=== PATIENT | female | born 1970 ===

== ENCOUNTER 2025-04-29 17:58 | Emergency (ER) | payer OTHER, SELFPAY ==
--- NOTE | 2025-04-29 18:25 | PC.NURSE ---
called patient name in waiting room with no answer
[2025-04-29 18:40] VITALS: BMI 44.9
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
--- NOTE | 2025-04-29 19:13 | MHC.EDTECH ---
t/w attempted lab draw 2x. rn aware of difficult stick.
[2025-04-29 19:43] LABS: MANUAL DIFF FLAG NO
[2025-04-29 19:44] LABS: Basophils Percent Auto 0.2 % (0-2); Eosinophils Absolute Auto 0.1 X10*3/uL (0.0-0.4); Eosinophils Percent Auto 0.8 % (0-4); Hematocrit 41.1 % (37.0-47.0); Imm Gran Abs Auto 0.07 X10*3/uL (0.00-0.03); Imm Gran Pct Auto 0.6 % (0.0-0.4); Lymphocytes Absolute Auto 2.8 X10*3/uL (1.2-4.9); Lymphocytes Percent Auto 22.8 % (20-40); Mean Corpuscular HGB Conc 31.6 g/dl (31.0-35.0); Mean Corpuscular Hemoglobin 24.3 pg (27.0-33.0); Mean Platelet Volume 10.3 fL (9.4-12.3); Monocytes Absolute Auto 0.5 X10*3/uL (0.1-1.2); Monocytes Percent Auto 4.2 % (2-11); Neutrophils Absolute Auto 8.7 x10*3/uL (2.0-8.3); Neutrophils Percent Auto 71.4 % (45-73); Platelet Count 180 X10*3/uL (160-400); Red Blood Count 5.34 X10*6/uL (4.20-5.50); Red Cell Distribution Width 15.8 % (11.0-16.0); White Blood Count 12.2 X10*3/uL (4.8-10.8)
[2025-04-29 20:01] LABS: Alanine Aminotransferase 14 U/L (0-31); Albumin Level 4.1 g/dL (3.5-5.0); Alkaline Phosphatase 120 U/L (39-117); Anion Gap 12 (12-20); Aspartate Amino Transferase 23 U/L (5-31); Bilirubin Total 0.2 mg/dL (0.0-1.0); Blood Urea Nitrogen 9 mg/dL (9-16); Calcium 9.5 mg/dL (8.4-10.2); Carbon Dioxide 29 mmol/L (22-29); Chloride 105 mmol/L (96-108); Creatinine Clr Calc Pharmacy 109.9; Estimated Glomerular Filt Rate > 60; Ethanol < 10 mg/dL; Glucose Random 113 mg/dL (60-115); Potassium 3.9 mmol/L (3.3-5.1); Sodium 142 mmol/L (135-145); Total Protein 7.9 g/dL (6.5-8.0)
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
[2025-04-29 22:46] VITALS: BP 155/93
[2025-04-29] MEDS: cloNIDine HCL 0.1 MG TABLET 0.2 MG PO (22:46)
[2025-04-29] MEDS: busPIRone HCl 10 MG TABLET PO (22:49)
[2025-04-29] MEDS: Gabapentin 400 MG CAPSULE PO (22:49)
[2025-04-29] MEDS: QUEtiapine Fumarate 50 MG TABLET PO (22:49)
[2025-04-29 23:39] VITALS: BP 155/93; PULSE 80; RESP 20; TEMP 36.9; O2SAT 98
[2025-04-30] VITALS (7 sets, daily range): BP systolic 119–166; BP diastolic 71–84; PULSE 63–72; RESP 14–16; TEMP 36.1–36.8; O2SAT 97–100
--- NOTE | 2025-04-30 | ECG_ITS ---
Test Reason : R/O PROLONGED QT Blood Pressure : */* mmHG Vent. Rate : 73 BPM Atrial Rate : 73 BPM P-R Int : 144 ms QRS Dur : 82 ms QT Int : 416 ms P-R-T Axes : 39 17 27 degrees QTcB Int : 458 ms Normal sinus rhythm Normal ECG No previous ECGs available Referred By: Marc Stevenson Electronically Signed By: RIAN BONILLA
--- NOTE | 2025-04-30 06:26 | HE.PHANOTE ---
METHADONE Dose: 72mg, last dosed 04/22/25 @0800, 12 take home bottles per Maria Eugenia at [facility] . (Take homes bottle to last through 05/04/2025).
--- NOTE | 2025-04-30 08:20 | MHC.EDTECH ---
Urine cup provided to patient. Patient aware that a urine sample is needed. Patient unable to void at this time.
[2025-04-30] MEDS: methADONE HCl 20 MG/2 ML ORAL.CONC 72 MG PO (08:29)
[2025-04-30] MEDS: Gabapentin 400 MG CAPSULE PO ×3 (08:29→21:53)
[2025-04-30] MEDS: busPIRone HCl 10 MG TABLET PO ×2 (08:30→21:54)
[2025-04-30] MEDS: amLODIPine Besylate 5 MG TABLET PO (08:30)
[2025-04-30] MEDS: cloNIDine HCL 0.1 MG TABLET PO ×2 (08:30→19:07)
[2025-04-30] MEDS: Nicotine 21 MG PATCH.TD24 TRANSDERMA (08:45)
--- NOTE | 2025-04-30 08:46 | PC.NURSE ---
Pt calm/cooperative at this time; ambulatory with steady, independent gait; pt gv Nicotine patch 21mg per request to LUE; awaiting bed for admission
[2025-04-30 09:37] LABS: Appearance Urine Cloudy; Color Urine Yellow; Glucose Urine UA Negative (Negative); Leukocyte Esterase Urine Trace (Negative); Nitrite Urine Negative (Negative); PH 7.5 (5.0-9.0); Specific Gravity - Urine 1.015 (1.005-1.025); UMIC TRIGGER UACC YES; Urine Blood Negative (Negative); Urine Ketones Negative (Negative); Urine Protein Negative (Neg-Trace)
[2025-04-30 09:46] LABS: Amphetamine Screen Urine Not Detected (Not Detect); Bacteria Urine 2+ (None Seen); Barbiturates, Urine Not Detected (Not Detect); Benzodiazepines Screen Urine Not Detected (Not Detect); Buprenorphine Scr Not Detected (Not Detect); Cannabinoid Screen Urine Not Detected (Not Detect); Cocaine Screen Urine Not Detected (Not Detect); Fentanyl, urine Not Detected (Not Detect); Hyaline Casts Urine 0-2 /LPF (0-2); Methadone Screen, Urine Positive (Not Detect); Opiate Screen Urine Not Detected (Not Detect); Other Crystals Urine Present; Oxycodone Screen Urine Not Detected (Not Detect); Phencyclidine Screen Urine Not Detected (Not Detect); RBC Urine 0-2 /HPF (0-2); Squamous Epithelial Cell Urine >20 /HPF (0-2); WBC Urine 0-5 /HPF (0-5)
--- NOTE | 2025-04-30 10:00 | PHA.MEDREC ---
Pharmacy Consult ? Medication Reconciliation Pharmacy has completed the medication reconciliation. Reviewed med rec done by nursing.
[2025-04-30] MEDS: Acetaminophen 325 MG TABLET 650 MG PO (11:46)
--- NOTE | 2025-04-30 11:57 | MHC.CARE ---
Referred to [facility]- activated referral @[id number], spoke with José Manuel
--- NOTE | 2025-04-30 12:02 | MHC.EDTECH ---
This tech provided patient with required items for shower. Patient ambulated with steady gait to the bathroom. All current needs met.
--- NOTE | 2025-04-30 15:03 | MHC.CARE ---
Per Fly with [facility], patient is under review for [facility]/ [facility]
--- NOTE | 2025-04-30 18:36 | MHC.CARE ---
Pt accepted to [facility] for Friday (05/01/25) at 9:45am, CARE team will Lyft Pt to [facility]. Pt reported her family will meet her there with her medications and clothes.
--- NOTE | 2025-04-30 19:35 | PC.NURSE ---
patient recently transitioned back into pod, friendly receptive mood, goal oriented, blunted affect but able to let her needs and wants be known. appears in no distress.
[2025-04-30] MEDS: cloNIDine HCL 0.1 MG TABLET 0.2 MG PO (21:53)
[2025-04-30] MEDS: QUEtiapine Fumarate 50 MG TABLET PO (21:53)
[2025-05-01 06:05] VITALS: BP 135/74; PULSE 65; RESP 16; TEMP 36.8; O2SAT 97
--- NOTE | 2025-05-01 06:58 | PC.NURSE ---
ASSUMED CARE FOR THIS PT AT APPROXIMATELY [id number]. NO APPARENT DISTRESS. LAYING IN BED QUIETLY. AWAITING ACCS RESPITE BED TODAY.
[2025-05-01] MEDS: cloNIDine HCL 0.1 MG TABLET PO (08:01)
[2025-05-01] MEDS: Gabapentin 400 MG CAPSULE PO (08:01)
[2025-05-01] MEDS: amLODIPine Besylate 5 MG TABLET PO (08:01)
[2025-05-01] MEDS: busPIRone HCl 10 MG TABLET PO (08:01)
[2025-05-01] MEDS: methADONE HCl 20 MG/2 ML ORAL.CONC 72 MG PO (08:05)
[2025-05-01 08:52] VITALS: BP 132/70; PULSE 79; RESP 14; TEMP 36.2; O2SAT 96
[2025-05-01 08:57] VITALS: BP 132/70; PULSE 79; RESP 14; TEMP 36.2; O2SAT 96
== END 2025-05-01 09:13 | disposition home or self-care (01) ==
PROVIDERS: Emergency Provider Emergency Medicine
DX: F43.0 Acute stress reaction (principal); R94.31 Abnormal electrocardiogram [ECG] [EKG]; R45.851 Suicidal ideations; Z79.899 Other long term (current) drug therapy; Z51.81 Encounter for therapeutic drug level monitoring
CPT/HCPCS: 36415; 80053; 80307; 81001; 85025; 93005; 99285; S9485

== ENCOUNTER → 2025-04-30 10:13 | Outpatient (BNV) | payer OTHER, SELFPAY | PROVIDERS: Emergency Provider Emergency Medicine; Visit Provider Internal Medicine | DX: Z13.6 Encounter for screening for cardiovascular disorders (principal) | CPT/HCPCS: 93010 ==

== ENCOUNTER 2025-06-13 17:12 | Emergency (ER) | payer OTHER, SELFPAY ==
[2025-06-13 17:18] VITALS: BP 104/61; PULSE 84; RESP 19; TEMP 36.4; O2SAT 98; BMI 35.2
--- NOTE | 2025-06-13 17:18 | ED.DIZZY ---
HPI - Dizziness General Chief Complaint: General Medical Stated Complaint: dizziness headache N/V for 4 days now Time Seen by Provider: 06/13/25 20:02 Source: patient Mode of arrival: ambulatory Limitations: no limitations History of Present Illness ED Provider: HPI Narrative: Patient is complaining of 4 days of nausea dizziness chills weakness headache no urinary symptoms no fever no upper respiratory symptoms no other family member sick patient has been outside for last 4 days Related Data Home Medications ?Medication ?Instructions ?Recorded ?Confirmed amlodipine 5 mg tablet 5 mg PO DAILY 04/29/25 04/29/25 buspirone 10 mg tablet 10 mg PO BID 04/29/25 04/29/25 clonidine HCl 0.1 mg tablet 0.1 mg PO BID 04/29/25 04/29/25 clonidine HCl 0.2 mg tablet 0.2 mg PO BEDTIME 04/29/25 04/29/25 gabapentin 400 mg capsule 400 mg PO TID 04/29/25 04/29/25 methadone 10 mg tablet 72 mg PO DAILY 04/29/25 04/30/25 quetiapine 50 mg tablet 50 mg PO BEDTIME 04/29/25 04/29/25 trazodone 100 mg tablet 100 mg PO BEDTIME PRN insomnia 04/29/25 04/29/25 Allergies Allergy/AdvReac Type Severity Reaction Status Date / Time No Known Allergies Allergy Verified 06/13/25 17:21 Review of Systems Review of Systems: Yes all other systems are reviewed and are negative [facility] Social History Social History Alcohol intake: former Advance Directives: No Advance Directives Information Provided: No Do you have a plan to hurt others: No Plan Physical Exam Vital Signs: Vital Signs: Last Vital Signs Temp 97.8 F 06/13/25 19:53 Pulse 63 06/13/25 19:53 Resp 12 06/13/25 19:53 BP 133/61 06/13/25 19:53 Pulse Ox 99 06/13/25 19:53 O2 Del Method Room Air 06/13/25 19:53 BMI result Body Mass Index 35.2 Appearance: Alert. Oriented X3. No acute distress. Eyes: PERRLA, No Nystagmus ENT: Pharynx normal. Oral Mucosa moist Neck: Normal inspection. Neck supple. CVS: Normal heart rate and rhythm. Pulses normal. Respiratory: No respiratory distress. Equal air entry bilateral, no wheezing/rales/rhonchi Abdomen: Soft and nontender. Bowel sounds are present, no mass palpable, no CVA tenderness Skin: Skin warm and dry. Normal skin color. Normal skin turgor. Extremities: No lower extremity edema. No calf tenderness Neuro: Oriented X 3. No motor deficit. No sensory deficit.No cerebellar signs , cranial nerves II-XII intact Course Course Course Narrative: This is an RME performed by Amy Simon RESIDENTIAL SERVICE TECHNICIAN: Additional HPI, ROS, PE not included below will be deferred to primary provider. Patient is a 54-year-old female presents emergency department for evaluation 4 days with dizziness, diffuse headache, weakness, nausea, vomiting, cold sweats and chills. Inability to tolerate oral intake without vomiting Plan: Serum labs, ECG, urinalysis, viral serologies Medications Administered Discontinued Medications Generic Name Dose Route Start Last Admin Trade Name Freq PRN Reason Stop Dose Admin Ondansetron HCl 4 mg 06/13/25 20:12 06/13/25 20:19 Ondansetron Odt 4 Mg Tab.Rapdis TRANSLINGU 06/13/25 20:13 4 mg ONCE ONE Administration Medical Decision Making Medical Decision Making [facility] Narrative: Patient with nonspecific multiple complaints been in outside in the heat for last 4 days labs showed leukocytosis without significant left shift COVID flu RSV negative will check urine likely heat exhaustion Differential Diagnosis Differential Diagnoses: The differential diagnosis associated with the presentation includes He digoxin/UTI/viral syndrome Admission/Observation Consideration of admission/observation: Escalation of care including admission/observation considered Lab Data [facility] Lab Attestation statement: I reviewed the patient's lab results. 06/13/25 17:30 06/13/25 17:30 Labs: Lab Results 06/13/25 06/13/25 Range/Units 17:30 20:25 WBC 12.5 H (4.8-10.8) X10*3/uL RBC 5.37 (4.20-5.50) X10*6/uL Hgb 13.3 (12.0-16.0) g/dl Hct 41.9 (37.0-47.0) % MCV 78.0 L (80.0-98.0) fL MCH 24.8 L (27.0-33.0) pg MCHC 31.7 (31.0-35.0) g/dl RDW 15.7 (11.0-16.0) % Plt Count 186 (160-400) X10*3/uL MPV 11.5 (9.4-12.3) fL Immature Gran % (Auto) 0.4 (0.0-0.4) % Neut % (Auto) 59.3 (45-73) % Lymph % (Auto) 33.3 (20-40) % [place] % (Auto) 5.5 (2-11) % Eos % (Auto) 1.1 (0-4) % Baso % (Auto) 0.4 (0-2) % Lymph # (Auto) 4.1 (1.2-4.9) X10*3/uL [place] # (Auto) 0.7 (0.1-1.2) X10*3/uL Eos # (Auto) 0.1 (0.0-0.4) X10*3/uL Baso # (Auto) 0.1 (0.0-0.2) X10*3/uL Abs Immat Gran (auto) 0.05 H (0.00-0.03) X10*3/uL Absolute Neuts (auto) 7.4 (2.0-8.3) x10*3/uL Absolute Nucleated RBC 0.000 (0.0-0.012) X10*3/uL Nucleated RBC % (auto) 0.0 (0.0-0.2) /100WBC Sodium 142 (135-145) mmol/L Potassium 3.8 (3.3-5.1) mmol/L Chloride 107 (96-108) mmol/L Carbon Dioxide 24 (22-29) mmol/L Anion Gap 15 (12-20) BUN 12 (9-16) mg/dL Creatinine 0.87 (0.5-1.4) mg/dL Estim Creat Clear Calc 69.1 Estimated GFR > 60 Random Glucose 106 (60-115) mg/dL Calcium 9.0 (8.4-10.2) mg/dL Total Bilirubin 0.3 (0.0-1.0) mg/dL Direct Bilirubin 0.2 (0.0-0.5) mg/dL AST 23 (5-31) U/L ALT 14 (0-31) U/L Alkaline Phosphatase 115 (39-117) U/L Troponin I High Sens < 2.7 (<3.5-17.0) ng/L Total Protein 7.1 (6.5-8.0) g/dL Albumin 3.8 (3.5-5.0) g/dL Lipase 10 (8-78) U/L Urine Color Dark Yellow Urine Appearance Cloudy Urine pH 5.5 (5.0-9.0) Ur Specific [place] >= 1.030 H (1.005-1.025) Urine Protein Trace (Neg-Trace) mg/dL Urine Glucose (UA) Negative (Negative) mg/dL Urine Ketones Trace (Negative) mg/dL Urine Blood Negative (Negative) Urine Nitrite Negative (Negative) Ur Leukocyte Esterase Trace H (Negative) Urine RBC 3-5 H (0-2) /HPF Urine WBC 0-5 (0-5) /HPF Ur Squamous Epith Cells 11-20 (0-2) /HPF Calcium Oxalate Crystal Present Urine Bacteria 3+ (None Seen) Hyaline Casts >20 (0-2) /LPF Urine Test NEGATIVE (NEGATIVE) Influenza Type A (PCR) NEGATIVE (Negative) Influenza Type B (PCR) NEGATIVE (Negative) RSV RNA Qual (PCR) NEGATIVE (Negative) SARS-CoV-2 RNA (RT-PCR) NEGATIVE (Negative) S. pyogenes GrpA ELIZABETH Negative (Negative) Discharge Plan Discharge Clinical Impression: Heat exhaustion Patient Disposition: Home, Self-Care Instructions: Heat Exhaustion (ED) Additional Instructions: Drink plenty of fluids Stay in shaded area Your symptoms likely for heat exhaustion Prescriptions: No Action clonidine HCl 0.1 mg tablet 0.1 mg PO BID gabapentin 400 mg capsule 400 mg PO TID amlodipine 5 mg tablet 5 mg PO DAILY trazodone 100 mg tablet 100 mg PO BEDTIME PRN (Reason: insomnia) buspirone 10 mg tablet 10 mg PO BID quetiapine 50 mg tablet 50 mg PO BEDTIME methadone 10 mg Tablet 72 mg PO DAILY clonidine HCl 0.2 mg Tablet 0.2 mg PO BEDTIME Print Language: Portuguese
--- NOTE | 2025-06-13 17:21 | ECG_ITS ---
Test Reason : dizziness Blood Pressure : */* mmHG Vent. Rate : 77 BPM Atrial Rate : 77 BPM P-R Int : 144 ms QRS Dur : 80 ms QT Int : 388 ms P-R-T Axes : 25 9 17 degrees QTcB Int : 439 ms Normal sinus rhythm Cannot rule out Anterior infarct , age undetermined Abnormal ECG When compared with ECG of 30-Apr-2025 10:13, Nonspecific T wave abnormality now evident in Anterior leads Referred By: Marianna Simon Electronically Signed By: Jeremy Bruno
[2025-06-13 17:41] LABS: MANUAL DIFF FLAG NO
[2025-06-13 17:43] LABS: Hematocrit 41.9 % (37.0-47.0); Hemoglobin 13.3 g/dl (12.0-16.0); Imm Gran Abs Auto 0.05 X10*3/uL (0.00-0.03); Imm Gran Pct Auto 0.4 % (0.0-0.4); Lymphocytes Absolute Auto 4.1 X10*3/uL (1.2-4.9); Mean Corpuscular HGB Conc 31.7 g/dl (31.0-35.0); Mean Corpuscular Hemoglobin 24.8 pg (27.0-33.0); Mean Corpuscular Volume 78.0 fL (80.0-98.0); NRBC Abs Auto 0.000 X10*3/uL (0.0-0.012); NRBC Pct Auto 0.0 /100WBC (0.0-0.2); Platelet Count 186 X10*3/uL (160-400); Red Blood Count 5.37 X10*6/uL (4.20-5.50); White Blood Count 12.5 X10*3/uL (4.8-10.8)
[2025-06-13 17:51] LABS: IDNOW Serial# 55D5AD1C; Strep A Nucleic Acid Negative (Negative)
[2025-06-13 17:57] LABS: Alanine Aminotransferase 14 U/L (0-31); Albumin Level 3.8 g/dL (3.5-5.0); Alkaline Phosphatase 115 U/L (39-117); Anion Gap 15 (12-20); Aspartate Amino Transferase 23 U/L (5-31); Blood Urea Nitrogen 12 mg/dL (9-16); Calcium 9.0 mg/dL (8.4-10.2); Carbon Dioxide 24 mmol/L (22-29); Chloride 107 mmol/L (96-108); Creatinine Clr Calc Pharmacy 69.1; Estimated Glomerular Filt Rate > 60; Lipase 10 U/L (8-78); Potassium 3.8 mmol/L (3.3-5.1); Sodium 142 mmol/L (135-145); Total Protein 7.1 g/dL (6.5-8.0)
[2025-06-13 18:06] LABS: Troponin-I High Sensitivity < 2.7 ng/L (<3.5-17.0)
[2025-06-13 18:18] LABS: Resp Syncy Virus RNA Qual PCR NEGATIVE (Negative); SARS COV2 PCR INHOUSE NEGATIVE (Negative)
[2025-06-13 19:53] VITALS: BP 133/61; PULSE 63; RESP 12; TEMP 36.6; O2SAT 99
[2025-06-13 20:39] LABS: Appearance Urine Cloudy; Glucose Urine UA Negative (Negative); PH 5.5 (5.0-9.0); Specific Gravity - Urine >= 1.030 (1.005-1.025); UMIC TRIGGER UACC YES
[2025-06-13 20:40] LABS: UPreg QC Valid YES
[2025-06-13 21:46] VITALS: BP 115/77; PULSE 73; RESP 20; TEMP 36.4; O2SAT 98
[2025-06-13 21:55] VITALS: BP 115/77; PULSE 73; RESP 20; TEMP 36.4; O2SAT 98
== END 2025-06-13 21:56 | disposition home or self-care (01) ==
PROVIDERS: Nurse Practitioner Family; Emergency Provider Internal Medicine; PCP Internal Medicine
DX: T67.5XXA Heat exhaustion, unspecified, initial encounter (principal); Y99.9 Unspecified external cause status; R42 Dizziness and giddiness; R51.9 Headache, unspecified; R11.2 Nausea with vomiting, unspecified; Z79.899 Other long term (current) drug therapy; Z03.818 Encounter for observation for suspected exposure to other biological agents ruled out
CPT/HCPCS: 36415; 80048; 80076; 81001; 81025; 83690; 84484; 85025; 87637; 87651; 93005; 99283; 99284

== ENCOUNTER → 2025-06-13 17:21 | Outpatient (BNV) | payer OTHER, SELFPAY | PROVIDERS: Emergency Provider Internal Medicine; PCP Internal Medicine; Visit Provider Internal Medicine Cardiovascular Disease | DX: R94.31 Abnormal electrocardiogram [ECG] [EKG] (principal); R42 Dizziness and giddiness | CPT/HCPCS: 93010 ==